=== PATIENT | male | born 1955 | race Caucasian/White ===

== ENCOUNTER 2023-03-22 20:18 | Inpatient (IN) | payer MEDICARE ==
[~2023-03-22] VITALS: Ht 175.3 cm; Wt 60.5 kg
[2023-03-22] MEDS ORDERED: normal saline 1000ML IV soln IVB ONE (20:25)
[2023-03-22] MEDS ORDERED: acetaminophen 325mg tablet PO ONE (21:00)
[2023-03-22 21:06] LABS: BASOPHILS # (AUTO) 0.1 X10'3 (0-0.2); BASOPHILS % (AUTO) 0.6 % (0-1); EOSINOPHILS # (AUTO) 0.1 X10'3 (0-0.9); EOSINOPHILS % (AUTO) 1.1 % (0-6); HEMOGLOBIN 11.8 g/dl (14.0-17.9); LYMPHOCYTES # (AUTO) 0.9 X10'3 (1.1-4.8); MEAN CORPUSCULAR HEMOGLOBIN 34.1 PG (27.0-31.0); MEAN CORPUSCULAR HGB CONC 33.7 g/dL (33.0-36.5); MEAN CORPUSCULAR VOLUME 101.1 FL (78-98); MEAN PLATELET VOLUME 6.5 FL (7.4-10.4); MONOCYTES # (AUTO) 1.5 X10'3 (0-0.9); MONOCYTES % (AUTO) 12.1 % (2-12); NEUTROPHILS # (AUTO) 9.7 X10'3 (1.8-7.7); NEUTROPHILS % (AUTO) 79.2 % (42-75); PLATELET COUNT 311 X10'3 (140-440); RED BLOOD COUNT 3.47 X10'6 (4.70-6.10); RED CELL DISTRIBUTION WIDTH 13.8 % (11.5-14.5); WHITE BLOOD COUNT 12.3 X10'3 (4.5-11.0)
[2023-03-22 21:16] LABS: APTT 28 SECONDS (22-32); INR 0.9 INR; PROTHROMBIN TIME 10.2 SECONDS (9.0-12.0)
[2023-03-22 21:26] LABS: ALANINE AMINOTRANSFERASE 78 U/L (12-78); ALBUMIN 3.1 G/DL (3.4-5.0); ALBUMIN/GLOBULIN RATIO 0.8 (1.1-1.5); ALKALINE PHOSPHATASE 169 IU/L (46-116); ANION GAP 9 (8-16); ASPARTATE AMINO TRANSFERASE 81 U/L (10-37); BLOOD UREA NITROGEN 22 MG/DL (7-18); C-REACTIVE PROTEIN 10.12 MG/DL (0.0-0.5); CALCIUM 9.1 MG/DL (8.5-10.1); CHLORIDE 94 MMOL/L (99-107); CREATININE 0.88 MG/DL (0.60-1.10); GLUCOSE 99 MG/DL (70-104); LIPASE 19 U/L (16-77); MAGNESIUM 1.5 MG/DL (1.5-2.4); POTASSIUM 4.2 MMOL/L (3.5-5.1); PRO BRAIN NATRIURETIC PEPTIDE 1131 PG/ML (0-125); SODIUM 131 MMOL/L (135-145); TOTAL CARBON DIOXIDE 27.6 MMOL/L (24-32); TOTAL PROTEIN 6.9 G/DL (6.4-8.2); eCRCL 71 ML/MIN; eGFR 87 ML/MIN
[2023-03-22 22:09] LABS: BILIRUBIN,URINE NEGATIVE (Neg); CLARITY,URINE SLIGHTLY CLOUDY (Clear); COLOR,URINE AMBER (Yellow); GLUCOSE, URINE NEGATIVE (Neg); KETONES,URINE TRACE mg/dl (Neg); LEUKOCYTE ESTERASE ,URINE SMALL (Neg); NITRITES, URINE NEGATIVE (Neg); OCCULT BLOOD,URINE TRACE-INTACT (Neg); PH,URINE 5.5 (4.8-8.0); PROTEIN,URINE 30 mg/dl (Neg); UROBILINOGEN,URINE 0.2 E.U/dL (0.2-1.0)
[2023-03-22 22:11] LABS: UA COLLECTION TYPE STRAIGHT CATH
[2023-03-22 22:18] LABS: BACTERIA,URINE 4+ /HPF (Neg); MUCUS STRANDS NONE SEEN /LPF (Neg); RBC,URINE 0-2 /HPF (0-2); SQUAMOUS EPITHELIAL CELL,UR NONE SEEN /LPF (FEW); WBC,URINE 30-50 /HPF (0-4)
[2023-03-22] MEDS ORDERED: CefTRIAXone/D5W-Rocephin 1gm 50 ML IV ONE (22:25)
[2023-03-22] MEDS ORDERED: docusate sod 100mg capsule PO PRN (23:05)
[2023-03-22] MEDS ORDERED: HYDROmorphone inj. 0.5 MG/0.5 ML DISP.SYRIN IV PRN (23:05)
[2023-03-22] MEDS ORDERED: potassium Cl 20 mEq SR tablet PO PRN (23:05)
[2023-03-22] MEDS ORDERED: potassium Cl 40MEQ/1/2NS 520ml 520 ML IV PRN (23:05)
[2023-03-22] MEDS ORDERED: HYDROmorphone/PF 0.2 MG/ML SYRINGE IV PRN (23:05)
[2023-03-22] MEDS ORDERED: magnesium 4gm in 100ml NS 100 ML IV PRN (23:05)
[2023-03-22] MEDS ORDERED: ondansetron/PF 4mg/2ml inj IV PRN (23:05)
[2023-03-22] MEDS ORDERED: bisacodyl 10mg suppository rectal RC PRN (23:05)
[2023-03-22] MEDS ORDERED: magnesium 2GM in 50ml NS 50 ML IV PRN (23:05)
[2023-03-22] MEDS ORDERED: mag hydrox/Alum hydrox/simeth 30ml oral suspension PO PRN (23:05)
[2023-03-22] MEDS: normal saline 1000ml 1,000 ML IV SCH (23:05)
[2023-03-22] MEDS ORDERED: acetaminophen 325mg tablet PO PRN (23:05)
[2023-03-23] MEDS ORDERED: BISA10SU11 RC (02:11)
[2023-03-23] MEDS ORDERED: VENL150C5 PO (02:14)
[2023-03-23] MEDS ORDERED: GABA600T13 PO (02:15)
[2023-03-23] MEDS ORDERED: METO25TA6 PO (02:16)
[2023-03-23] MEDS: traMADol 50MG tablet PO PRN ×2 (02:29→12:26)
[2023-03-23] MEDS: buprenorphine/naloxone 2-0.5mg sublingual tablet SL SCH ×4 (02:29→20:25)
[2023-03-23] MEDS ORDERED: FLO0.4C PO (02:35)
[2023-03-23] MEDS ORDERED: bisacodyl 10mg suppository rectal RC PRN (03:35)
[2023-03-23] MEDS ORDERED: gabapentin 300mg capsule PO SCH (04:00)
[2023-03-23 04:13] LABS: BASOPHILS % (AUTO) 0.7 % (0-1); EOSINOPHILS # (AUTO) 0.1 X10'3 (0-0.9); EOSINOPHILS % (AUTO) 0.8 % (0-6); HEMATOCRIT 28.2 % (42.0-52.0); HEMOGLOBIN 9.7 g/dl (14.0-17.9); MEAN CORPUSCULAR HEMOGLOBIN 34.4 PG (27.0-31.0); MEAN CORPUSCULAR HGB CONC 34.2 g/dL (33.0-36.5); MEAN CORPUSCULAR VOLUME 100.6 FL (78-98); MEAN PLATELET VOLUME 6.4 FL (7.4-10.4); MONOCYTES # (AUTO) 0.8 X10'3 (0-0.9); NEUTROPHILS # (AUTO) 4.7 X10'3 (1.8-7.7); NEUTROPHILS % (AUTO) 71.5 % (42-75); PLATELET COUNT 254 X10'3 (140-440); RED CELL DISTRIBUTION WIDTH 13.7 % (11.5-14.5); WHITE BLOOD COUNT 6.5 X10'3 (4.5-11.0)
[2023-03-23 04:26] LABS: ALANINE AMINOTRANSFERASE 61 U/L (12-78); ALBUMIN 2.4 G/DL (3.4-5.0); ALBUMIN/GLOBULIN RATIO 0.8 (1.1-1.5); ALKALINE PHOSPHATASE 126 IU/L (46-116); ANION GAP 8 (8-16); ASPARTATE AMINO TRANSFERASE 68 U/L (10-37); BILIRUBIN,TOTAL 0.8 MG/DL (0.1-1.0); BLOOD UREA NITROGEN 18 MG/DL (7-18); BUN/CREATININE RATIO 25.7 (10.0-20.0); CALCIUM 8.4 MG/DL (8.5-10.1); CHLORIDE 100 MMOL/L (99-107); GLUCOSE 94 MG/DL (70-104); MAGNESIUM 1.4 MG/DL (1.5-2.4); POTASSIUM 3.6 MMOL/L (3.5-5.1); SODIUM 133 MMOL/L (135-145); TOTAL CARBON DIOXIDE 24.7 MMOL/L (24-32); TOTAL PROTEIN 5.3 G/DL (6.4-8.2); eCRCL 89 ML/MIN; eGFR > 90 ML/MIN
[2023-03-23] MEDS: K and/or MAG REPLACEMENT MC SCH ×2 (07:18→20:00)
[2023-03-23] MEDS: tamsulosin 0.4mg capsule PO SCH (07:28)
[2023-03-23] MEDS: venlafaxine XR 75mg capsule (Q24H) PO SCH ×2 (07:28→20:29)
[2023-03-23] MEDS: CefTRIAXone/D5W-Rocephin 1gm 50 ML IV SCH (07:28)
[2023-03-23] MEDS: metoprolol tartrate 25mg tablet PO SCH ×2 (07:29→20:27)
[2023-03-23] MEDS: gabapentin 300mg capsule PO SCH ×4 (07:29→20:25)
[2023-03-23 09:00] VITALS: BP 168/88; PULSE 97; RESP 15; TEMP 98.7
[2023-03-23 10:00] VITALS: BP 122/83; PULSE 94; RESP 15; TEMP 98.7; O2SAT 96
[2023-03-23 10:30] VITALS: RESP 16; O2SAT 96
[2023-03-23] MEDS: normal saline 1000ml 1,000 ML IV SCH ×2 (11:30→19:05)
[2023-03-23] MEDS: vancomycin/NS 1 GM ADD-VANTAGE 250 ML IV SCH ×2 (12:52)
[2023-03-23] MEDS: magnesium Cl slow-release 64mg tablet PO PRN (17:44)
[2023-03-23 18:00] VITALS: BP 153/84; PULSE 90; RESP 15; TEMP 98.2; O2SAT 96
[2023-03-23 20:00] VITALS: RESP 16; O2SAT 96
[2023-03-23] MEDS: enoxaparin 40mg/0.4ml syringe SQ SCH (20:28)
[2023-03-23 22:00] VITALS: BP 137/84; PULSE 84; RESP 14; TEMP 98.7; O2SAT 96
[2023-03-24] VITALS (7 sets, daily range): BP systolic 133–161; BP diastolic 89–106; PULSE 78–95; RESP 15–16; TEMP 97.5–99.2; O2SAT 93–98
[2023-03-24] MEDS: vancomycin/NS 1 GM ADD-VANTAGE 250 ML IV SCH ×2 (00:13→12:11)
[2023-03-24] MEDS ORDERED: diphenhydrAMINE 25mg capsule PO ONE (00:25)
[2023-03-24] MEDS: normal saline 1000ml 1,000 ML IV SCH ×2 (05:05→15:05)
[2023-03-24 07:05] LABS: BASOPHILS # (AUTO) 0.1 X10'3 (0-0.2); BASOPHILS % (AUTO) 1.1 % (0-1); EOSINOPHILS # (AUTO) 0.2 X10'3 (0-0.9); EOSINOPHILS % (AUTO) 3.1 % (0-6); HEMATOCRIT 26.3 % (42.0-52.0); LYMPHOCYTES # (AUTO) 1.1 X10'3 (1.1-4.8); LYMPHOCYTES % (AUTO) 18.8 % (21-51); MEAN CORPUSCULAR HEMOGLOBIN 34.5 PG (27.0-31.0); MEAN CORPUSCULAR HGB CONC 34.4 g/dL (33.0-36.5); MEAN CORPUSCULAR VOLUME 100.4 FL (78-98); MEAN PLATELET VOLUME 6.5 FL (7.4-10.4); MONOCYTES # (AUTO) 0.9 X10'3 (0-0.9); NEUTROPHILS # (AUTO) 3.5 X10'3 (1.8-7.7); PLATELET COUNT 273 X10'3 (140-440); RED BLOOD COUNT 2.62 X10'6 (4.70-6.10); RED CELL DISTRIBUTION WIDTH 13.2 % (11.5-14.5); WHITE BLOOD COUNT 5.7 X10'3 (4.5-11.0)
[2023-03-24 07:22] LABS: ALANINE AMINOTRANSFERASE 56 U/L (12-78); ALBUMIN 2.3 G/DL (3.4-5.0); ALBUMIN/GLOBULIN RATIO 0.8 (1.1-1.5); ALKALINE PHOSPHATASE 114 IU/L (46-116); ANION GAP 8 (8-16); ASPARTATE AMINO TRANSFERASE 67 U/L (10-37); BILIRUBIN,TOTAL 0.7 MG/DL (0.1-1.0); BLOOD UREA NITROGEN 4 MG/DL (7-18); BUN/CREATININE RATIO 7.8 (10.0-20.0); CALCIUM 8.3 MG/DL (8.5-10.1); CHLORIDE 101 MMOL/L (99-107); CREATININE 0.51 MG/DL (0.60-1.10); GLUCOSE 99 MG/DL (70-104); MAGNESIUM 1.5 MG/DL (1.5-2.4); POTASSIUM 3.6 MMOL/L (3.5-5.1); SODIUM 134 MMOL/L (135-145); TOTAL CARBON DIOXIDE 24.8 MMOL/L (24-32); TOTAL PROTEIN 5.2 G/DL (6.4-8.2); eCRCL 122 ML/MIN; eGFR > 90 ML/MIN
[2023-03-24] MEDS: K and/or MAG REPLACEMENT MC SCH ×2 (08:00→19:33)
[2023-03-24] MEDS: buprenorphine/naloxone 2-0.5mg sublingual tablet SL SCH (08:27)
[2023-03-24] MEDS: tamsulosin 0.4mg capsule PO SCH (08:27)
[2023-03-24] MEDS: gabapentin 300mg capsule PO SCH ×3 (08:27→19:39)
[2023-03-24] MEDS: metoprolol tartrate 25mg tablet PO SCH ×2 (08:27→19:28)
[2023-03-24] MEDS: CefTRIAXone/D5W-Rocephin 1gm 50 ML IV SCH (08:28)
[2023-03-24] MEDS: venlafaxine XR 75mg capsule (Q24H) PO SCH ×2 (08:28→19:23)
[2023-03-24] MEDS ORDERED: VANCOMYCIN LEVEL IV ONE (11:30)
[2023-03-24] MEDS ORDERED: morphine 2 MG/ML inj. syringe IV PRN (19:00)
[2023-03-24] MEDS: enoxaparin 40mg/0.4ml syringe SQ SCH (19:26)
[2023-03-24] MEDS ORDERED: buprenorphine/naloxone 2-0.5mg sublingual tablet SL SCH (20:00)
[2023-03-25] MEDS: normal saline 1000ml 1,000 ML IV SCH ×3 (01:05→21:05)
[2023-03-25] MEDS: gabapentin 300mg capsule PO SCH ×4 (01:51→21:55)
[2023-03-25] MEDS: buprenorphine/naloxone 2-0.5mg sublingual tablet SL SCH ×4 (01:53→21:58)
[2023-03-25 06:00] VITALS: BP 173/104; PULSE 78; RESP 16; TEMP 99; O2SAT 98
[2023-03-25] MEDS: tamsulosin 0.4mg capsule PO SCH (07:38)
[2023-03-25] MEDS: venlafaxine XR 75mg capsule (Q24H) PO SCH ×2 (07:38→21:55)
[2023-03-25] MEDS: metoprolol tartrate 25mg tablet PO SCH ×2 (07:43→22:00)
[2023-03-25] MEDS: CefTRIAXone/D5W-Rocephin 1gm 50 ML IV SCH (07:45)
[2023-03-25] MEDS: K and/or MAG REPLACEMENT MC SCH ×2 (07:45→22:07)
[2023-03-25 08:17] LABS: BASOPHILS # (AUTO) 0.1 X10'3 (0-0.2); EOSINOPHILS # (AUTO) 0.2 X10'3 (0-0.9); EOSINOPHILS % (AUTO) 3.3 % (0-6); HEMATOCRIT 25.9 % (42.0-52.0); HEMOGLOBIN 9.1 g/dl (14.0-17.9); LYMPHOCYTES # (AUTO) 1.1 X10'3 (1.1-4.8); LYMPHOCYTES % (AUTO) 18.1 % (21-51); MEAN CORPUSCULAR HEMOGLOBIN 34.8 PG (27.0-31.0); MEAN CORPUSCULAR HGB CONC 35.2 g/dL (33.0-36.5); MEAN CORPUSCULAR VOLUME 98.7 FL (78-98); MEAN PLATELET VOLUME 6.5 FL (7.4-10.4); MONOCYTES # (AUTO) 0.8 X10'3 (0-0.9); MONOCYTES % (AUTO) 13.2 % (2-12); NEUTROPHILS # (AUTO) 3.8 X10'3 (1.8-7.7); NEUTROPHILS % (AUTO) 64.4 % (42-75); PLATELET COUNT 291 X10'3 (140-440); RED BLOOD COUNT 2.62 X10'6 (4.70-6.10); RED CELL DISTRIBUTION WIDTH 13.4 % (11.5-14.5); WHITE BLOOD COUNT 5.9 X10'3 (4.5-11.0)
[2023-03-25 08:36] LABS: ALANINE AMINOTRANSFERASE 56 U/L (12-78); ALBUMIN 2.4 G/DL (3.4-5.0); ALBUMIN/GLOBULIN RATIO 0.8 (1.1-1.5); ALKALINE PHOSPHATASE 124 IU/L (46-116); ANION GAP 5 (8-16); ASPARTATE AMINO TRANSFERASE 52 U/L (10-37); BILIRUBIN,TOTAL 0.8 MG/DL (0.1-1.0); BLOOD UREA NITROGEN 2 MG/DL (7-18); BUN/CREATININE RATIO 4.3 (10.0-20.0); CALCIUM 8.6 MG/DL (8.5-10.1); CHLORIDE 101 MMOL/L (99-107); CREATININE 0.46 MG/DL (0.60-1.10); GLUCOSE 97 MG/DL (70-104); MAGNESIUM 1.3 MG/DL (1.5-2.4); POTASSIUM 3.3 MMOL/L (3.5-5.1); SODIUM 134 MMOL/L (135-145); TOTAL CARBON DIOXIDE 27.7 MMOL/L (24-32); TOTAL PROTEIN 5.4 G/DL (6.4-8.2); eCRCL 135 ML/MIN; eGFR > 90 ML/MIN
[2023-03-25] MEDS: potassium Cl 20 mEq SR tablet PO PRN ×3 (09:30→18:29)
[2023-03-25] MEDS: magnesium Cl slow-release 64mg tablet PO PRN ×2 (09:36→22:07)
[2023-03-25 10:00] VITALS: BP 166/92; PULSE 74; RESP 16; TEMP 99; O2SAT 97
[2023-03-25] MEDS: HYDROcodone/acetaminophen 5mg/325mg tablet PO PRN (11:34)
[2023-03-25 18:00] VITALS: BP 162/96; PULSE 74; RESP 13; TEMP 97.8; O2SAT 97
[2023-03-25 19:30] VITALS: RESP 14; O2SAT 97
[2023-03-25 22:00] VITALS: BP 155/92; PULSE 86; RESP 14; TEMP 98.6; O2SAT 98
[2023-03-25] MEDS: enoxaparin 40mg/0.4ml syringe SQ SCH (22:02)
[2023-03-26] MEDS: buprenorphine/naloxone 2-0.5mg sublingual tablet SL SCH ×3 (03:04→15:15)
[2023-03-26] MEDS: gabapentin 300mg capsule PO SCH ×3 (03:04→15:15)
[2023-03-26 04:25] VITALS: O2SAT 97
[2023-03-26 06:00] VITALS: BP 154/90; PULSE 78; RESP 20; TEMP 98.2; O2SAT 96
[2023-03-26 06:52] LABS: BASOPHILS # (AUTO) 0.1 X10'3 (0-0.2); BASOPHILS % (AUTO) 1.4 % (0-1); EOSINOPHILS # (AUTO) 0.2 X10'3 (0-0.9); EOSINOPHILS % (AUTO) 3.5 % (0-6); HEMATOCRIT 27.5 % (42.0-52.0); HEMOGLOBIN 9.5 g/dl (14.0-17.9); LYMPHOCYTES # (AUTO) 1.5 X10'3 (1.1-4.8); LYMPHOCYTES % (AUTO) 22.3 % (21-51); MEAN CORPUSCULAR HEMOGLOBIN 34.3 PG (27.0-31.0); MEAN CORPUSCULAR HGB CONC 34.6 g/dL (33.0-36.5); MEAN CORPUSCULAR VOLUME 99.1 FL (78-98); MEAN PLATELET VOLUME 6.8 FL (7.4-10.4); MONOCYTES # (AUTO) 0.7 X10'3 (0-0.9); MONOCYTES % (AUTO) 10.9 % (2-12); NEUTROPHILS # (AUTO) 4.1 X10'3 (1.8-7.7); NEUTROPHILS % (AUTO) 61.9 % (42-75); PLATELET COUNT 307 X10'3 (140-440); RED BLOOD COUNT 2.77 X10'6 (4.70-6.10); RED CELL DISTRIBUTION WIDTH 13.6 % (11.5-14.5); WHITE BLOOD COUNT 6.7 X10'3 (4.5-11.0)
[2023-03-26 07:27] LABS: ALANINE AMINOTRANSFERASE 46 U/L (12-78); ALBUMIN 2.3 G/DL (3.4-5.0); ALBUMIN/GLOBULIN RATIO 0.7 (1.1-1.5); ALKALINE PHOSPHATASE 118 IU/L (46-116); ANION GAP 7 (8-16); ASPARTATE AMINO TRANSFERASE 38 U/L (10-37); BILIRUBIN,TOTAL 0.7 MG/DL (0.1-1.0); BLOOD UREA NITROGEN 5 MG/DL (7-18); CALCIUM 8.5 MG/DL (8.5-10.1); CHLORIDE 101 MMOL/L (99-107); GLUCOSE 95 MG/DL (70-104); MAGNESIUM 1.4 MG/DL (1.5-2.4); POTASSIUM 3.8 MMOL/L (3.5-5.1); SODIUM 136 MMOL/L (135-145); TOTAL CARBON DIOXIDE 27.8 MMOL/L (24-32); TOTAL PROTEIN 5.4 G/DL (6.4-8.2); eCRCL 124 ML/MIN; eGFR > 90 ML/MIN
[2023-03-26] MEDS: K and/or MAG REPLACEMENT MC SCH (08:00)
[2023-03-26 10:00] VITALS: BP 162/102; PULSE 95; RESP 15; TEMP 98.2; O2SAT 96
[2023-03-26] MEDS: venlafaxine XR 75mg capsule (Q24H) PO SCH (10:53)
[2023-03-26] MEDS: metoprolol tartrate 25mg tablet PO SCH (10:53)
[2023-03-26] MEDS: tamsulosin 0.4mg capsule PO SCH (10:53)
[2023-03-26] MEDS: normal saline 1000ml 1,000 ML IV SCH (11:16)
[2023-03-26] MEDS: magnesium Cl slow-release 64mg tablet PO PRN (11:16)
[2023-03-26] MEDS: CefTRIAXone/D5W-Rocephin 1gm 50 ML IV SCH (11:17)
[2023-03-26 15:15] VITALS: RESP 16
[2023-03-26] MEDS: HYDROcodone/acetaminophen 5mg/325mg tablet PO PRN (15:15)
[2023-03-26 15:45] VITALS: BP 143/93; PULSE 75
== END 2023-03-26 16:10 | DRG 871 ==
LOC: ER 20:20 → ED HOLD 23:14 → EDBEDREQ 03-23 07:01 → ORTHO 4S 03-23 09:05
PROVIDERS: ADMIT Family Medicine; ATTEND Family Medicine
DX: A41.9 Sepsis, unspecified organism (principal); G93.41 Metabolic encephalopathy; E87.1 Hypo-osmolality and hyponatremia; N30.00 Acute cystitis without hematuria; I10 Essential (primary) hypertension; Z20.822 Contact with and (suspected) exposure to COVID-19; D50.9 Iron deficiency anemia, unspecified; F10.10 Alcohol abuse, uncomplicated; Z79.899 Other long term (current) drug therapy
CPT/HCPCS: 36415; 70450; 71045; 80053; 80202; 81001; 83605; 83690; 83735; 83880; 84145; 84484; 85025; 85610; 85651; 85730; 86140; 87040; 87077; 87081; 87088; 87186; 87502; 87503; 87811; 93005; 97116; 97161; 97530; 99285; A6449; C1758; G0378; J0696; J1650; J3370; J3475; J7030; Q0163

== ENCOUNTER 2023-08-23 12:59 | Emergency (ER) | payer MEDICARE, BC ==
[~2023-08-23] VITALS: Ht 172.7 cm; Wt 68.2 kg
[~2023-08-23 12:59] MED LIST: AMYL1CAP56 PO; BUPR1TAB45 SL; FLO0.4C PO; GABA600T13 PO; LISI20TA28 PO; METO25TA6 PO; NOR5T PO; VENL150C5 PO
[2023-08-23] MEDS ORDERED: FOLI0.8C PO (18:09)
[2023-08-23] MEDS ORDERED: MECO10005 PO (18:09)
[2023-08-23] MEDS ORDERED: THIA50TA10 PO (18:09)
[2023-08-23] MEDS ORDERED: LORA-268 PO ×2 (18:10→18:11)
[2023-08-23] MEDS ORDERED: ONDA8TAB13 PO (18:16)
[2023-08-23] MEDS: LORazepam 1 MG tablet PO ONE (18:34)
[2023-08-23] MEDS: gabapentin 300mg capsule PO SCH (18:34)
[2023-08-23] MEDS: acetaminophen 325mg tablet PO ONE (18:34)
[2023-08-23] MEDS ORDERED: phenobarbital sod 130mg/ml inj. IV ONE (19:45)
[2023-08-23] MEDS: phenobarbital sod 130mg/ml inj. IM ONE ×2 (20:49→22:09)
[2023-08-23] MEDS ORDERED: phenobarbital inj 130 MG in normal saline 100ml IV soln 99 ML IV SCH (21:50)
[2023-08-23] MEDS ORDERED: CHLO25CA10 PO (21:57)
[2023-08-23 23:00] VITALS: BP 168/100; PULSE 89; RESP 17; TEMP 98.7; O2SAT 93
== END 2023-08-23 23:00 | disposition home or self-care (01) ==
LOC: ER 13:00
DX: F10.90 Alcohol use, unspecified, uncomplicated (principal); M85.861 Other specified disorders of bone density and structure, right lower leg; I10 Essential (primary) hypertension; Z79.899 Other long term (current) drug therapy; Y90.9 Presence of alcohol in blood, level not specified
CPT/HCPCS: 73564; 96372; 99285; J2560

== ENCOUNTER 2023-11-29 18:37 | Emergency (ER) | payer MEDICARE, BC ==
[~2023-11-29] VITALS: Ht 165.1 cm; Wt 71.0 kg
[~2023-11-29 18:37] MED LIST changes: -BUPR1TAB45 SL; +FOLI0.8C PO; +LORA-268 PO
[2023-11-29] MEDS: acetaminophen 325mg tablet PO ONE (20:59)
[2023-11-29] MEDS: normal saline 1000ml 1,000 ML IV ONE (20:59)
[2023-11-29 21:05] LABS: BILIRUBIN,URINE NEGATIVE (Neg); CLARITY,URINE CLEAR (Clear); COLOR,URINE YELLOW (Yellow); GLUCOSE, URINE NEGATIVE (Neg); KETONES,URINE NEGATIVE (Neg); LEUKOCYTE ESTERASE ,URINE NEGATIVE (Neg); NITRITES, URINE NEGATIVE (Neg); OCCULT BLOOD,URINE NEGATIVE (Neg); PROTEIN,URINE TRACE mg/dl (Neg); UROBILINOGEN,URINE 0.2 E.U/dL (0.2-1.0)
[2023-11-29 21:07] LABS: BASOPHILS # (AUTO) 0.1 X10'3 (0-0.2); EOSINOPHILS # (AUTO) 0.2 X10'3 (0-0.9); EOSINOPHILS % (AUTO) 3.4 % (0-6); HEMATOCRIT 39.9 % (42.0-52.0); LYMPHOCYTES # (AUTO) 1.1 X10'3 (1.1-4.8); LYMPHOCYTES % (AUTO) 20.7 % (21-51); MEAN CORPUSCULAR HEMOGLOBIN 29.6 PG (27.0-31.0); MEAN CORPUSCULAR HGB CONC 32.6 g/dL (33.0-36.5); MEAN CORPUSCULAR VOLUME 90.6 FL (78-98); MEAN PLATELET VOLUME 6.5 FL (7.4-10.4); MONOCYTES # (AUTO) 0.4 X10'3 (0-0.9); MONOCYTES % (AUTO) 7.7 % (2-12); NEUTROPHILS # (AUTO) 3.6 X10'3 (1.8-7.7); NEUTROPHILS % (AUTO) 67.2 % (42-75); PLATELET COUNT 151 X10'3 (140-440); RED BLOOD COUNT 4.41 X10'6 (4.70-6.10); RED CELL DISTRIBUTION WIDTH 15.3 % (11.5-14.5); WHITE BLOOD COUNT 5.4 X10'3 (4.5-11.0)
[2023-11-29 21:20] LABS: UA COLLECTION TYPE URINAL
[2023-11-29 21:21] LABS: BACTERIA,URINE NONE SEEN /HPF (Neg); RBC,URINE 0-2 /HPF (0-2); WBC,URINE 0-4 /HPF (0-4)
[2023-11-29 21:22] LABS: MUCUS STRANDS NONE SEEN /LPF (Neg); SQUAMOUS EPITHELIAL CELL,UR NONE SEEN /LPF (FEW)
[2023-11-29 21:23] LABS: ALBUMIN 3.3 G/DL (3.4-5.0); ANION GAP 11 (8-16); BLOOD UREA NITROGEN 4 MG/DL (7-18); BUN/CREATININE RATIO 6.3 (10.0-20.0); CHLORIDE 96 MMOL/L (99-107); CREATININE 0.63 MG/DL (0.60-1.10); GLUCOSE 92 MG/DL (70-104); MAGNESIUM 1.6 MG/DL (1.5-2.4); POTASSIUM 3.4 MMOL/L (3.5-5.1); SODIUM 134 MMOL/L (135-145); TOTAL CARBON DIOXIDE 26.8 MMOL/L (24-32); eCRCL 99 ML/MIN; eGFR > 90 ML/MIN
[2023-11-29] MEDS: HYDROcodone/acetaminophen 5mg/325mg tablet PO ONE (23:16)
[2023-11-30] MEDS ORDERED: ONDA-245 PO (01:01)
[2023-11-30] MEDS ORDERED: AMOX-419 PO (01:01)
[2023-11-30] MEDS: amox tr/potassium clavulanate 500mg/125mg TAB PO ONE (01:37)
[2023-11-30] MEDS: HYDROcodone/acetaminophen 5mg/325mg tablet PO ONE (01:38)
[2023-11-30] MEDS: ondansetron 4mg rapidly disintigrating tab PO ONE (01:38)
[2023-11-30 02:37] VITALS: BP 159/92; PULSE 82; RESP 15; TEMP 98.7; O2SAT 96
== END 2023-11-30 02:38 | disposition home or self-care (01) ==
LOC: ER 18:37
DX: K52.89 Other specified noninfective gastroenteritis and colitis (principal); I10 Essential (primary) hypertension; F10.90 Alcohol use, unspecified, uncomplicated; R41.82 Altered mental status, unspecified; Z20.822 Contact with and (suspected) exposure to COVID-19; Z79.899 Other long term (current) drug therapy; Z98.890 Other specified postprocedural states
CPT/HCPCS: 36415; 70450; 71045; 74176; 80048; 81001; 83735; 84145; 84484; 85025; 87811; 93005; 96360; 99285; J7030

== ENCOUNTER 2025-02-07 12:25 | Emergency (ER) | payer MEDICARE, BC ==
[~2025-02-07] VITALS: Ht 172.7 cm; Wt 86.2 kg
[~2025-02-07 12:25] MED LIST changes: -FLO0.4C PO; +GABA-1405 PO; -GABA600T13 PO; +ONDA-245 PO; +TAMS-55 PO
[2025-02-07 12:27] VITALS: TEMP 97.7
--- NOTE | 2025-02-07 12:35 | ELECTROCARDIOGRAPH REPORT ---
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 ARASELI Oswald Measurements Intervals [place] Rate: 80 P: 73 CT: 136 QRS: 30 QRSD: 95 T: 50 QT: 397 QTc: 458 Interpretive Statements Sinus rhythm Probable left atrial enlargement Electronically Signed On 02-08-2025 12:56:[address] ARASELI Oswald Please click the below link to view image of tracing.
--- NOTE | 2025-02-07 12:53 | RADIOLOGY REPORT ---
CHEST RADIOGRAPH Indication: CP Technique: Single frontal view of the chest was obtained COMPARISON: DI CHEST,SINGLE VIEW on DOS: 11/29/23, CT CT CHEST on DOS: 08/28/23, DI CHEST,SINGLE VIEW on DOS: 07/17/23, DI CHEST,SINGLE VIEW on DOS: 03/22/23 FINDINGS: Lines and Tubes: None Lungs: Elevation of the left hemidiaphragm and mild left basilar atelectasis Pleura: No effusion. No pneumothorax. Cardiomediastinal contours: Unremarkable Bones: Postsurgical changes in the thoracolumbar spine IMPRESSION: No acute disease. Elevation of left hemidiaphragm and mild left basilar atelectasis
[2025-02-07 13:13] LABS: MEAN PLATELET VOLUME 6.2 FL (7.4-10.4); RED CELL DISTRIBUTION WIDTH 14.6 % (11.5-14.5)
--- NOTE | 2025-02-07 13:30 | Physician Documentation ---
History of Present Illness ~ General Chief Complaint: Shortness of Breath Stated Complaint: SOB Time Seen by MD: 13:22 Primary Medical Doctor: MILA Source: patient (4) Mode of Arrival: EMS, Stretcher History of Present Illness Initial Comments Patient was brought in presumably for shortness of breath per the triage note, however the patient mentions no shortness of breath and tells me he is here because of lower extremity edema. Initially he tells me he has only had edema for a few days, but on further questioning it appears that he has had edema going on for months, but is worse over the last few days. Patient has never spoken with his PMD about it, has not had a workup, and does not take any diuretics or use compression. He denies any redness to his legs, but has had no fever, and no chest pain. He denies ever having had a stress test before. Medication Reconciliation Allergies: Coded Allergies: No Known Allergies (Unverified , 02/07/25) Scheduled Amlodipine Besylate (Amlodipine Besylate), 5 MG PO DAILY Folic Acid (Folic Acid), 1 CAP PO DAILY Gabapentin (Gabapentin), 1 TAB PO QID, (Reported) Lipase/Protease/Amylase (Creon Dr 24,000 Units Capsule), 1 CAP PO Q8H, (Reported) Lisinopril (Lisinopril), 20 MG PO DAILY Metoprolol Tartrate (Metoprolol Tartrate), 1 TAB PO Q12H, (Reported) Ondansetron 8mg ODT (Ondansetron Odt), 1 TAB PO Q6H Tamsulosin Hcl* (Flomax*), 0.8 MG PO DAILY, (Reported) Venlafaxine HCl (Effexor Xr), 2 CAP PO Q12H, (Reported) Scheduled PRN Lorazepam (Ativan), 1 TAB PO Q8H PRN for alcohol withdrawal symptoms Past Medical History Past Medical History: Dementia (Mentioned on triage note), Hypertension, Cirrohsis, BPH, Depression Past Surgical History: orthopedic surgeries Smoking Status: Never smoker Alcohol Use: Occasionally ((history of heavy alcohol use)) Drug Use: none Lives with: Spouse Lives In: Home Review of Systems All Other Systems at this time: Reviewed and Negative Physical Exam Physical Exam Vital Signs: Temperature: 97.7, Source: Oral, Heart Rate: 87, Respiratory Rate: 22, BP: 153/112, Pulse Oximetry: 95, Weight: 86.200 Oxygen Flow Rate: 0 Physical Exam General: Pt is awake, alert, oriented x4 in no acute distress and well appearing. He is occasionally slow to answer. Head: Normocephalic and atraumatic. Eyes: Conjunctiva normal. ENT: Mucous membranes slightly dry Neck: Supple. Chest: Completely clear to auscultation bilaterally, without rales, rhonchi, or wheezes. There is no accessory muscle use or retractions. Cardiac: Regular rate and rhythm without murmurs, gallops or rubs. Palpation of the chest wall is normal. Abd: Soft, nondistended, nontender, with normoactive bowel sounds. No guarding or rebound. Extremities: Patient with 2+ edema bilateral lower extremities symmetrically, to [id number]. 2+ dorsalis pedis pulse, cap refill time less than 2 seconds. Skin: [place], warm and dry with no significant rash appreciated. Neuro: Cranial nerves II-XII grossly intact. The gait is normal. Progress Results/Orders Results/Orders Orders - PATY BARRIOS MD Chest,Single View (02/07/25 12:32) Monitor (02/07/25 12:32) Saline Lock (02/07/25 12:32) Oxygen (02/07/25 12:32) Completed Orders - PATY BARRIOS MD Chest,Single View (02/07/25 12:32) Cbc/Diff (02/07/25 12:32) BMP (02/07/25 12:32) PBNP (02/07/25 12:32) Electrocardiogram (02/07/25 12:32) Hs Troponin I W Calculations (02/07/25 12:32) Hs Troponin I W Calculations (02/07/25 14:32) Man Diff (02/07/25 12:55) Ethanol (02/07/25 12:55) Furosemide 20mg Inj (Lasix Inj) (02/07/25 13:40) Ua W/Microscopic, Cult If Ind (02/07/25 14:05) Medications Received in ER Medications (Trade) Dose Ordered Sig/Tania Route PRN Reason Start Time Stop Time Status Last Admin Dose Admin (Lasix inj) 20 mg ONCE ONCE IV 02/07/25 13:40 02/07/25 13:45 DC 02/07/25 14:01 20 MG Vital Signs 02/07/25 02/07/25 02/07/25 12:27 13:39 15:15 Temp 97.7 Pulse 87 86 77 Resp 22 13 13 B/P (MAP) 153/112 180/113 (135) 163/109 (127) Pulse Ox 95 94 94 O2 Flow Rate 0 0 0 Laboratory Tests Test 02/07/25 12:55 02/07/25 14:05 02/07/25 14:37 White Blood Count 6.3 Red Blood Count 4.45 L Hemoglobin 12.5 L Hematocrit 38.0 L Mean Corpuscular Volume 85.5 Mean Corpuscular Hemoglobin 28.0 Mean Corpuscular Hemoglobin Concent 32.8 L Red Cell Distribution Width 14.6 H Platelet Count 251 Mean Platelet Volume 6.2 L Neutrophils (%) (Auto) 51.9 Lymphocytes (%) (Auto) 19.1 L Monocytes (%) (Auto) 10.5 Eosinophils (%) (Auto) 17.1 H Basophils (%) (Auto) 1.4 H Neutrophils # (Auto) 3.3 Lymphocytes # (Auto) 1.2 Monocytes # (Auto) 0.7 Eosinophils # (Auto) 1.1 H Basophils # (Auto) 0.1 CBC Comment Differential Total Cells Counted 100 Neutrophils % (Manual) 62.0 Lymphocytes % (Manual) 16.0 L Monocytes % (Manual) 7.0 Eosinophils % (Manual) 15.0 H Platelet Estimate Normal Red Blood Cell Morphology Normal Basophilic Stippling Sodium Level 137 Potassium Level 4.4 Chloride Level 98 L Carbon Dioxide Level 33.9 H Anion Gap 5 L Blood Urea Nitrogen 10 Creatinine 0.93 Estimated GFR/1.73 m2 81 BUN/Creatinine Ratio 10.8 Glucose Level 132 H Calcium Level 9.2 Troponin I High Sensitivity 12 13 Pro-B-Type Natriuretic Peptide 380 H Albumin 3.8 Chemistry Comments Ethyl Alcohol Level < 10 Urine Specimen Description Urinal Urine Color Yellow Urine Clarity Clear Urine pH 7.5 Urine Specific [place] 1.010 Urine Protein 100 H Urine Glucose (UA) Negative Urine Ketones Negative Urine Occult Blood Negative Urine Nitrite Negative Urine Bilirubin Negative Urine Urobilinogen 0.2 Urine Leukocyte Esterase Negative Urine RBC 0-2 Urine WBC None seen Urine Squamous Epithelial Cells None seen Urine Bacteria Few Urine Mucus Few Urine Culture Indicated Not ind Volume Urine Centrifuged 10 ml Urine Comment Troponin I High Sens Percent Delta 8 Troponin I Hi Sens Absolute Change 1 EKG/XRAY/CT/US/VASC/MRI EKG : EKG Rate: 80 EKG: NSR EKG Blocks: none [place]: normal Hypertrophy: LAE Additional Comment My interpretation. No STEMI Chest X-Ray : Interpreted By: self, radiologist, both Views: 1 VIEW Indication: other Additional Comments No acute disease Medical Decision Making Additional information obtaine: N/A Findings Differential Diagnosis Patient presented with chief complaint of lower extremity edema, and has had no shortness of breath throughout his emergency department stay. Examination showed clear lungs, normal oxygen saturation, x-ray without evidence for pneumonia. The patient's proBNP is slightly elevated, but at baseline compared to the most recent reading in August of 2023, with no evidence for severe congestive heart failure. No ischemic changes on EKG and with normal serial troponins. Patient's kidney function is within normal limits as well. His edema may be due to some fluid overload, potentially some venous insufficiency, but would likely respond to a low-dose of Lasix which I will start him on today, patient to follow up closely with his primary care physician for further outpatient evaluation and management, and understands to return to the emergency department for any worsening of his condition or any new concerns. Departure Time of Disposition: 16:23 Disposition: 01 HOME / SELF CARE / HOMELESS Impression: Primary Impression: Peripheral edema Condition: Stable Discharge Instructions: Peripheral Edema Additional Instructions: Please elevate your legs whenever sitting, and purchase compression stockings to help manage the swelling in your legs. You will receive a small prescription for a diuretic, but should discuss with your doctor this next week whether you should continue and can get a prescription through them. Return to the emergency department if you have any chest pain, shortness of breath, fever, redness to your legs, unequal swelling in your legs, or any other concerns. Referrals: NO PRIMARY CARE PROVIDER (PCP) Prescriptions Furosemide (LASIX) 20 Mg Tablet 1 TAB PO DAILY, #5 TAB 0 Refills Prov: PATY BARRIOS MD 02/07/25 Education Educated: Patient Educated regarding: diagnosis, treatment Signature Scribe Signature: Attestation: PATY BARRIOS MD Feb 07, 2025 13:30
[2025-02-07 13:31] LABS: CREATININE 0.93 MG/DL (0.60-1.10); PRO BRAIN NATRIURETIC PEPTIDE 380 PG/ML (0-125); TOTAL CARBON DIOXIDE 33.9 MMOL/L (24-32); eCRCL 74 ML/MIN; eGFR 81 ML/MIN
[2025-02-07 13:55] LABS: ETHANOL < 10 MG/DL (<10)
[2025-02-07 14:20] LABS: LEUKOCYTE ESTERASE ,URINE NEGATIVE (Neg); NITRITES, URINE NEGATIVE (Neg); OCCULT BLOOD,URINE NEGATIVE (Neg)
[2025-02-07 14:24] LABS: UA COLLECTION TYPE URINAL
[2025-02-07 14:27] LABS: SQUAMOUS EPITHELIAL CELL,UR NONE SEEN /LPF (FEW)
[2025-02-07 14:28] LABS: MUCUS STRANDS FEW /LPF (Neg)
[2025-02-07 15:03] LABS: EOSINOPHILS % (MANUAL) 15.0 % (0-6); LYMPHOCYTES % (MANUAL) 16.0 % (21-51); MONOCYTES % (MANUAL) 7.0 % (2-12); NEUTROPHILS % (MANUAL) 62.0 % (42-75); PLATELET ESTIMATE NORMAL
[2025-02-07] MEDS ORDERED: FURO-150 PO (16:25)
[2025-02-07 16:30] VITALS: BP 180/110; PULSE 94; RESP 19; O2SAT 94
[2025-02-07] MEDS: potassium Cl 20 mEq SR tablet PO ONE (16:35)
== END 2025-02-07 16:48 | disposition home or self-care (01) ==
LOC: ER 12:25
DX: R60.0 Localized edema (principal); I10 Essential (primary) hypertension; F32.A Depression, unspecified; Z79.899 Other long term (current) drug therapy; Z72.89 Other problems related to lifestyle; Z98.890 Other specified postprocedural states
CPT/HCPCS: 36415; 71045; 80048; 81001; 83880; 84484; 85007; 85025; 93005; 96374; 99285; G0480; J1938; 80320